=== PATIENT | male | born 1985 ===

== ENCOUNTER 2017-11-07 05:38 | Inpatient (IN) | payer OTHER ==
[~2017-11-07] VITALS: Ht 165.1 cm; Wt 76.2 kg
[2017-11-07] VITALS (14 sets, daily range): BP systolic 105–137; BP diastolic 56–83
[2017-11-07] MEDS ORDERED: SOMA350 MG PO (06:20)
[2017-11-07] MEDS ORDERED: IBUPROFEN600 MG ORAL (06:20)
[2017-11-07] MEDS ORDERED: OMEPRAZOLE20 M2 ORAL (06:20)
[2017-11-07] MEDS ORDERED: XANAX2 MG ORAL (06:20)
[2017-11-07] MEDS ORDERED: Bacitracin 50000 Units Vial ONE (06:49)
[2017-11-07] MEDS ORDERED: Bupivacaine 0.5% Inj 30 ml vial INJ ONE (06:49)
[2017-11-07] MEDS ORDERED: Gelfoam Absorbable 1gm powder pkt TOPIC ONE (06:49)
[2017-11-07] MEDS ORDERED: Vancomycin 1gm inj IVPB ONE (06:49)
[2017-11-07] MEDS ORDERED: Thrombin 5000 units spray kit TOPIC ONE (06:49)
[2017-11-07] MEDS ORDERED: Thrombin 5000 units TOPIC ONE (06:49)
[2017-11-07] MEDS ORDERED: Sterile Water Irrig 1000ml IRRIG ONE (07:00)
[2017-11-07] MEDS ORDERED: Glycopyrrolate 0.2mg/ml 1ml Vial ONE (07:00)
[2017-11-07] MEDS ORDERED: ceFAZolin sod 2 GM in D5W 110 ML IVPB ONE (07:00)
[2017-11-07] MEDS ORDERED: Lidocaine 1% MPF 10mg/ml 5ml ONE (07:00)
[2017-11-07] MEDS ORDERED: Propofol 1,000mg/ 100ml btl IV ONE (07:00)
[2017-11-07] MEDS ORDERED: LR 1000ml ONE (07:00)
[2017-11-07] MEDS ORDERED: Dexamethasone 4mg/ml vial ONE (07:00)
[2017-11-07] MEDS ORDERED: Neostigmine 1mg/ml 10ml Inj ONE (07:00)
[2017-11-07] MEDS ORDERED: NS Irrig 1000ml ONE (07:00)
[2017-11-07] MEDS ORDERED: fentaNYL 100 mcg/2 mL IV ONE (07:00)
[2017-11-07] MEDS ORDERED: Midazolam 2mg/2ml Inj ONE (07:00)
[2017-11-07] MEDS ORDERED: Succinylcholine 20mg/ml 10ml vial ONE (07:00)
[2017-11-07] MEDS ORDERED: Sodium Chloride 10ml vial INJ ONE (07:00)
[2017-11-07] MEDS ORDERED: Nimbex 2mg/ml Inj 10ML IVP ONE (07:00)
[2017-11-07] MEDS ORDERED: Morphine Sulfate 10mg/ml Inj ONE (07:00)
[2017-11-07] MEDS ORDERED: Ketorolac 30mg Inj ONE (07:00)
--- NOTE | 2017-11-07 07:14 | Pre-Procedure Note/Attestation ---
Pre-Procedure Note/Attestation Complete Prior to Procedure Planned Procedure: not applicable Procedure Narrative: Left sided L5S1 microdiscectomy and bilateral hemilaminotomy foraminotomy Indications for Procedure Pre-Operative Diagnosis: low back pain and radiculopathy Attestation I attest that I discussed the nature of the procedure; its benefits; risks and complications; and alternatives (and the risks and benefits of such alternatives ), prior to the procedure, with the patient (or the patient's legal technical support representative). I attest that, if there was a reasonable possibility of needing a blood transfusion, the patient (or the patient's legal technical support representative) was given the [place] [facility] [employer] [facility] standardized written summary, pursuant to the [place] Blood Safety Act ([place] Health and Safety Code # 1645, as amended). I attest that I re-evaluated the patient just prior to the surgery and that there has been no change in the patient's H&P, except as documented below: TAWNY CALDWELL Nov 07, 2017 07:14
--- NOTE | 2017-11-07 07:15 | Brief Operative Note ---
Immediate Post Operative Note Operative Note Chief Complaint: lbp and radiculopathy Pre-op Diagnosis: L5S1 hnp, low back pain and radiculopathy Procedure: PROCEDURE PERFORMED DURING ADMISSION: Hemilaminotomy, foraminotomy, and microdiscectomy of right-sided L4-L5 and L5-S1. Post-op Diagnosis: same as pre-op Findings: consistent w/pre-op dx studies Surgeon: Ness Special Procedure Technologist: Eliel Anesthesiologist: ÓSCAR Anesthesia: general Specimen: none Complications: none Condition: stable Estimated Blood Loss: minimal Drains: none Implant(s) used?: Yes - michell sz 10 TAWNY CALDWELL Nov 07, 2017 07:15
[2017-11-07] MEDS ORDERED: LR 1000ml 1,000 ML IVLG SCH (08:12)
--- NOTE | 2017-11-07 08:12 | Anethesia Preoperative Eval ---
Anesthesia Pre-op PMH/ROS General Date of Evaluation: Nov 07, 2017 Time of Evaluation: 07:04 Anesthesiologist: Rachell ASA Score: ASA 2 Mallampati Score Class I : Soft palate, uvula, fauces, pillars visible Class II: Soft palate, uvula, fauces visible Class III: Soft palate, base of uvula visible Class IV: Only hard plate visible Mallampati Classification: Class II Surgeon: Ness Diagnosis: Lumbar radiculopathy Surgical Procedure: L5-S1 laminotomy with discectomy and Baxano decompression Anesthesia History: none Social History: current smoker Family History: no anesthesia problems Allergies: Coded Allergies: No Known Allergies (Unverified , 11/06/17) Medications: see eMAR Past Medical History Cardiovascular: Denies: HTN, CAD, [place], valve dz, arrhythmia, other Pulmonary: Denies: asthma, COPD, LILIB[place], other Gastrointestinal/Genitourinary: Reports: GERD - mild, Denies: CRI, ESRD, other Neurologic/Psychiatric: Reports: depression/anxiety, other - questionable h/o seizers, Denies: dementia, CVA, TIA Endocrine: Denies: DM, hypothyroidism, steroids, other HEENT: Denies: cataract (L), cataract (R), glaucoma, [place] (L), [place] (R), other Hematology/Immune: Denies: anemia, DVT, bleeding disorder, other Musculoskeletal/Integumentary: Denies: OA, RA, DJD, DDD, edema, other PMH Narrative: as above PSxH Narrative: ORIF of tibial Fx Anesthesia Pre-op Phys. Exam Physician Exam Last Vital Signs Date Time Temp Pulse Resp B/P (MAP) Pulse Ox O2 Delivery O2 Flow Rate FiO2 11/07/17 06:41 97.7 48 20 105/56 97 Room Air Constitutional: NAD Neurologic: CN 2-12 intact Cardiovascular: RRR, no M/R/G Respiratory: CTA Gastrointestinal: S/NT/ND Airway Exam Mallampati Score: Class II MO: full Neck: flexible ROM: full Teeth: intact Dentures: no upper, no lower Anesthesia Pre-op A/P Labs see chart Studies Pre-op Studies: EKG - NSR, CXR - WNL, echo - EF >55% Risk Assessment & Plan Assessment: ASA 2 Plan: GA with ETT prone position neuromonitoring Status Change Before Surgery: No Pre-Antibiotics Drug: Ancef 2 gr. Given Within 1 Hr of Incision: Yes Time Given: 07:36 JOCE LINDSAY M.D. Nov 07, 2017 08:12
[2017-11-07] MEDS ORDERED: Ketorolac 30mg Inj IV PRN (08:15)
[2017-11-07] MEDS ORDERED: Midazolam 2mg/2ml Inj IVP PRN (08:15)
[2017-11-07] MEDS ORDERED: Meperidine 50mg/ml Inj(FOR RIGORS ONLY) IV PRN (08:15)
[2017-11-07] MEDS ORDERED: DiphenhydrAMINE 50mg/ml Inj IVP PRN (08:15)
[2017-11-07] MEDS ORDERED: Metoclopramide 10mg/2ml Inj IVP PRN ×2 (08:15→14:30)
[2017-11-07] MEDS ORDERED: Hydromorphone 0.5mg/0.5ml inj IVP PRN ×2 (08:15→14:30)
--- NOTE | 2017-11-07 09:58 | Immediate Post-Op Evaluation ---
Immediate Post-Op Evalulation Immediate Post-Op Evalulation Procedure: L5-S1 Laminotomy with discectomy and Baxano decompression Date of Evaluation: Nov 07, 2017 Time of Evaluation: 09:50 IV Fluids: 1100 Blood Products: none Estimated Blood Loss: 100 Urinary Output: none Blood Pressure Systolic: 111 Blood Pressure Diastolic: 65 Pulse Rate: 75 Respiratory Rate: 20 O2 Sat by Pulse Oximetry: 99 Temperature (Fahrenheit): 97.6 Pain Score (1-10): 2 Nausea: No Vomiting: No Complications Surgical course uneventful turned to supine position on hospital bed , patients mouth and upper airways full of semidigested food , according to preop patients information his last his las foot intake was around 2300 hour considering amount and condition of regurgitant suction out of his mouth it happened much later, chest X-ray ordered puls oxymetry was normal throughout the case will monitor postoperatively. Patient Status: reacts, patent, extubated, none Hydration Status: adequate JOCE LINDSAY M.D. Nov 07, 2017 09:58
--- NOTE | 2017-11-07 10:14 | Diagnostic Imaging Report ---
Indication: Cough, secretions on extubation Technique: One view of the chest Comparison: none Findings: Patchy infiltrate and atelectasis is seen in the right suprahilar region. A band of atelectasis is seen in the left perihilar region. The pleural spaces are clear. The heart is upper limits normal in size. The upper trachea appears deviated to the left, but suspect that this is due to the head being turned. Impression: Patchy right suprahilar infiltrate and associated atelectasis. Pneumonia a possibility. Correlate with clinical findings Left perihilar atelectasis Findings discussed with patient's attending anesthesiologist at the time of interpretation
--- NOTE | 2017-11-07 11:50 | Diagnostic Imaging Report ---
Indication: Back pain, intraoperative Technique: Intraoperative images Comparison: none Findings: Intraoperative images demonstrate localizer tool posterior to the upper sacrum. Subsequent images demonstrate deployment of the Baxano device at L5-S1. Impression: Intraoperative imaging, as described
[2017-11-07] MEDS ORDERED: HYDROmorphone 1mg/ml Carpuject SUBQ PRN (14:30)
[2017-11-07] MEDS ORDERED: Norco 5mg/325mg tab ORAL PRN (14:30)
[2017-11-07] MEDS ORDERED: HYDROmorphone 1mg/ml Carpuject IVP PRN (14:30)
[2017-11-07] MEDS ORDERED: Milk of Magnesia 30ml Ud ORAL PRN (14:30)
[2017-11-07] MEDS ORDERED: Hydromorphone 0.5mg/0.5ml inj SUBQ PRN (14:30)
[2017-11-07] MEDS ORDERED: Naloxone 0.4mg/ml Inj IVP PRN (14:30)
[2017-11-07] MEDS ORDERED: Albuterol/Ipratropium 3ml neb HHN PRN (14:45)
[2017-11-07] MEDS ORDERED: Chloraseptic Spray 20mL Bottle ORAL PRN (15:00)
[2017-11-07 15:11] LABS: ABG ALLEN TEST POSITIVE; ABG BASE EXCESS -1.1
[2017-11-07] MEDS ORDERED: Zosyn 3.375gm q8h **Extended infusion IVPB ONE ×2 (16:00)
[2017-11-07 16:05] LABS: ANION GAP 6 mmol/L (5-15); CALCIUM 8.4 MG/DL (8.5-10.1); CARBON DIOXIDE 28 MMOL/L (21-32); CHLORIDE 107 MMOL/L (98-107); GLOMERULAR FILTRATION RATE > 60 mL/min (>60); POTASSIUM 4.4 MMOL/L (3.5-5.1); SODIUM 141 MMOL/L (136-145)
[2017-11-07] MEDS: NS w/KCl 20mEq 1,000 ML IV SCH (17:01)
[2017-11-07] MEDS: ceFAZolin sod 1 GM in D5W 55 ML IV SCH (17:01)
[2017-11-07] MEDS: Docusate 100mg cap ORAL SCH (18:11)
[2017-11-07] MEDS: Dexamethasone 4mg/ml vial IVP SCH (18:11)
--- NOTE | 2017-11-07 21:15 | Operative Note - Dictated ---
DATE OF OPERATION: 11/07/2017 SURGEON: Cristofer Arzola MD, Orthopaedic Spine Surgeon. CO-SURGEON: Tobias Julian M.D. ANESTHESIA: General endotracheal anesthesia. PREOPERATIVE DIAGNOSES: 1. Intractable back pain. 2. Intractable leg pain. 3. Worsening radiculopathy. 4. Weakness. 5. Herniated nucleus pulposus, L5-S1 herniation. 6. Neural foraminal stenosis, L5-S1. POSTOPERATIVE DIAGNOSES: 1. Intractable back pain. 2. Intractable leg pain. 3. Worsening radiculopathy. 4. Weakness. 5. Herniated nucleus pulposus, L5-S1 herniation. 6. Neural foraminal stenosis, L5-S1. PROCEDURES PERFORMED: 1. Left-sided L5-S1 microdiscectomy. 2. L5-S1 hemilaminotomy, foraminotomy, medial facetectomy decompression bilateral. 3. L5-S1 neural foraminotomy through a transpedicular intraforaminal approach. 4. Use of intraoperative microscope. 5. Supervision and interpretation of intraoperative fluoroscopy. 6. Supervision and interpretation of somatosensory-evoked potential and free running EMG monitoring. ESTIMATED BLOOD LOSS: Less than 100 mL. COMPLICATIONS: None. INDICATIONS FOR THE PROCEDURE: Rafael presents for intractable back pain and radiculopathy. The patient tried and failed a prolonged course of conservative management, including but not limited to chiropractic therapy, physical therapy, nonsteroidal anti-inflammatory drugs, medication, ice packs as well as epidural injection. Despite these therapies, the patient still developed recalcitrant pain and elected for definitive management in the form of left-sided L5-S1 microdiscectomy, L5-S1 hemilaminotomy, foraminotomy, and medial facetectomy, and L5-S1 neural foraminotomy through a transpedicular intraforaminal approach. We had a long discussion with him regarding definitive surgical treatment options. The patient's MRI demonstrated herniated nucleus pulposus, L5-S1 herniation, neural foraminal stenosis, L5-S1, and as a result, I felt he would benefit from the discectomy as well as neural foraminotomy at this level. We had a long discussion with the patient regarding the risks, alternatives, and benefits of surgery. Our description of the risks included a discussion in person as well as a signed consent which detailed all pertinent risks and the procedure itself. Briefly, our discussion included but was not limited to infection, bleeding, pseudarthrosis, spinal cord injury, neurovascular injury, dural tear, CSF leak, neuropathy, paralysis, permanent weakness/drop foot, paresthesias blindness, palsy, and weakness. The patient understood there may be a need for revision surgery or additional procedures. Approach-related complications including dysphonia, dysphagia, blindness, permanent vocal cord and neural injury, hematoma, swallowing, and breathing difficulty. Medical complications including liver, kidney, shock, and cardiopulmonary failure. Anesthesia complications including , swelling. Damage to the musculature, larynx (voice injury or loss),esophagus (throat), trachea, blood vessels and muscles (muscular sprain) and lungs (pneumothorax) during this surgical procedure. Injury to deeper structures may be temporary or permanent. The patient understood these and elected to proceed. A written and verbal consent was given. We discussed the pros and cons of all the alternatives. We discussed the uncertainties associated with the decision. Afterwards I assessed the patients understanding and explored their preferences. All questions were answered and no guarantees were given. Medical clearance was obtained prior to surgery. OPERATIVE FINDINGS: A broad-based disc herniation at L5-S1 which encroached on the thecal sac and neural foraminal elements therein. This disc was acute in nature and not calcified. It was mobile and free floating and resected easily. There was also neural foraminal stenosis at L5-S1. DESCRIPTION OF PROCEDURE: Under the benefit of general endotracheal anesthesia and with the assistance of the entire operative team, the patient was moved from the [place] furnace onto the operative table in the prone position on a Billy frame. The head was secured and positioned appropriately. Bilateral arms were secured with Gelpads and foam and all bony prominences were padded. The bilateral lower extremity SCD and SANDRA hose were placed for DVT prophylaxis. A surgical timeout was called which corroborated our planned procedure. Preoperative antibiotics were administered within 30 minutes of the incision for prophylaxis. Decadron was given for preoperative steroids. Using lateral radiography, the operative levels were delineated. An incision was marked based on our interpretation of lateral radiography and afterwards the body was prepped and draped in the usual sterile manner. The family was notified that we were ready to commence surgery and were called in the waiting room hourly for updates. An incision was based on our lateral fluoroscopic image to center the incision at the L5-S1 interspace. The wound was prepped and draped in the usual sterile fashion. Using a scalpel, a midline incision was taken down through the skin and subcutaneous tissues until the overlying hemilamina of L5-S1 were visualized. Next, using meticulous hemostasis, hemilamotomies were dissected and retractors were placed. Using a [place] dental, we confirmed placement at the L5-S1 interspace. We next turned our attention to our decompression. A standard hemilaminotomy, foraminotomy, medial facetectomy and bilateral was performed at each level in standard fashion using a Midas-Ganesh type AM8 drill bit, straight and angled curettage, and [place] 4 rongeurs until the lateral thecal sac margin and traversing nerve root was visualized. All remainders of the ligamentum flavum and lateral bony margins were resected in total with angled curettage and Kerr[place] 4 rongeurs until the lateral thecal sac margin and traversing nerve root was visualized and decompressed. We next turned our attention toward our L5-S1 microdiscectomy on the left side. A Sandy 4 was used to gently mobilize the thecal sac medially and this was held retracted with a bayonetted nerve root retractor. It was at this point that we noted a large broad-based disc protrusion with encroachment dorsally on the thecal sac neural foraminal contents. A bayonet and nerve root retractor was then placed carefully to retract the thecal sac and a discectomy was performed using a combination of a long-handled 15 blade scalpel, downgoing and straight pituitaries and downgoing curettage. Afterward the disc space was irrigated twice with 20 mL of antibiotic-impregnated saline. All loose and free-floating disc fragments were carefully resected with a narrow pituitary. Having been satisfied with our decompression after our discectomy of all neural elements, we next turned our attention to our neural foraminoplasty/foraminotomy. This was performed only on the left side through a transpedicular intraforaminal approach using an access probe followed by a neuro check device, which confirmed ventral placement of our nerve root. Once we confirmed we were safe, we next turned our attention towards placement of our size 10 file under direct microscopic visualization and under lateral fluoroscopy. Using pre and post reciprocation imaging, we were able to visualize our direct decompression given the reciprocation allowed for re-creation of the neural foraminal arch at L5-S1. Afterwards hemostasis was obtained with 60 mL of antibiotic-impregnated saline followed by FloSeal and Gelfoam. After sponge and needle count were found to be correct, next we turned our attention to closure. Closure consisted of 1-0 Vicryl in standard interrupted fashion. Zosyn was placed deep to the fascia and superficial to the fascia for antibiotic prophylaxis. Skin closure was performed with 2-0 Vicryl in interrupted fashion followed by a running Monocryl for the skin. Final dressings consisted of Dermabond for the superficial skin, Telfa, and Tegaderm. The patient tolerated the procedure well. The patient was extubated after the conclusion of surgery without incident. We discussed the findings of the surgery with the family upon completion of the case. At this point, the patient will be transferred to the spine floor for further observation. Cristofer Arzola M.D. DR: Jorge A JOB#: [id number] CC: MARK
[2017-11-07] MEDS: Norco 7.5mg/325mg tab ORAL PRN (21:41)
[2017-11-08] MEDS: Piperacillin/Tazobactam 3.375 GM in D5W 55 ML IVPB SCH ×3 (00:06→16:34)
[2017-11-08] MEDS: ceFAZolin sod 1 GM in D5W 55 ML IV SCH ×2 (00:08→06:34)
[2017-11-08] MEDS: Dexamethasone 4mg/ml vial IVP SCH ×3 (00:08→12:00)
[2017-11-08 00:15] VITALS: BP 138/73
[2017-11-08] MEDS: NS w/KCl 20mEq 1,000 ML IV SCH ×3 (03:02→21:30)
[2017-11-08 03:14] VITALS: BP 127/58
[2017-11-08 03:58] VITALS: BP 120/58
[2017-11-08] MEDS: Docusate 100mg cap ORAL SCH ×2 (08:12→17:14)
[2017-11-08] MEDS: Norco 7.5mg/325mg tab ORAL PRN ×4 (08:13→21:29)
--- NOTE | 2017-11-08 12:39 | 48 Hour Post Anesthesia Eval ---
Post Anesthesia Evaluation Procedure: L5-S1 Laminotomy with discectomy and Baxano decompression Date of Evaluation: Nov 08, 2017 Time of Evaluation: 12:38 Blood Pressure Systolic: 108 0: 56 Pulse Rate: 72 Respiratory Rate: 20 Temperature (Fahrenheit): 97.6 O2 Sat by Pulse Oximetry: 97 Airway: patent Nausea: No Vomiting: No Pain Intensity: 3 Hydration Status: adequate Cardiopulmonary Status: stable Mental Status/LOC: patient returned to baseline Follow-up Care/Observations: n/a Post-Anesthesia Complications: none Follow-up care needed: N/A JOCE LINDSAY M.D. Nov 08, 2017 12:39
[2017-11-08 12:47] LABS: MEAN CORPUSCULAR HEMOGLOBIN 32.1 PG (27.0-31.0); MEAN CORPUSCULAR VOLUME 94 FL (80-99); MEAN PLATELET VOLUME 7.7 FL (6.5-10.1); PLATELET COUNT 295 K/UL (150-450); RED BLOOD COUNT 3.86 M/UL (4.70-6.10); RED CELL DISTRIBUTION WIDTH 10.9 % (11.6-14.8); WHITE BLOOD COUNT 21.5 K/UL (4.8-10.8)
[2017-11-08 13:10] LABS: ANION GAP 12 mmol/L (5-15); CARBON DIOXIDE 27 MMOL/L (21-32); CHLORIDE 105 MMOL/L (98-107); CREATININE 1.2 MG/DL (0.55-1.30); GLOMERULAR FILTRATION RATE > 60 mL/min (>60); SODIUM 143 MMOL/L (136-145)
[2017-11-08 13:38] LABS: BAND NEUTROPHILS % (MANUAL) 0 % (0-8); BASOPHILS % (MANUAL) 0 % (0-2); EOSINOPHILS % (MANUAL) 0 % (0-3); LYMPHOCYTES % (MANUAL) 11 % (20-45); NEUTROPHILS % (MANUAL) 86 % (45-75); PLATELET ESTIMATE ADEQUATE; PLATELET MORPHOLOGY NORMAL; TOTAL CELLS COUNTED 100
--- NOTE | 2017-11-08 18:14 | Diagnostic Imaging Report ---
Indication: Reason For Exam: POST-OP Technique: One view of the chest Comparison: 11/07/2017 Findings: Heart size and mediastinal contours are stable. There is mild pulmonary vascular congestion/fluid overload. There is interval improved aeration of the bilateral lungs. There is no pleural effusion or pneumothorax. Osseous structures are stable. Impression: Interval improved aeration of the lungs compared to one day prior and likely related to improved atelectasis. Minimal hazy right suprahilar opacity persists. No pleural effusion or pneumothorax.
[2017-11-08 20:00] VITALS: BP 135/76
[2017-11-09] MEDS: Piperacillin/Tazobactam 3.375 GM in D5W 55 ML IVPB SCH ×4 (00:30→23:53)
[2017-11-09 04:00] VITALS: BP 105/41
[2017-11-09 08:00] VITALS: BP 125/75
[2017-11-09] MEDS: NS w/KCl 20mEq 1,000 ML IV SCH ×2 (08:18→17:36)
[2017-11-09] MEDS: Docusate 100mg cap ORAL SCH ×2 (08:19→17:57)
[2017-11-09] MEDS: Norco 7.5mg/325mg tab ORAL PRN ×3 (08:21→20:16)
[2017-11-09 12:00] VITALS: BP 130/70
[2017-11-09 16:00] VITALS: BP 139/79
[2017-11-10] VITALS: BP 104/52
[2017-11-10 04:00] VITALS: BP 112/54
[2017-11-10] MEDS: NS w/KCl 20mEq 1,000 ML IV SCH (04:00)
[2017-11-10] MEDS: Norco 7.5mg/325mg tab ORAL PRN (05:15)
[2017-11-10 08:00] VITALS: BP 113/61
[2017-11-10] MEDS: Piperacillin/Tazobactam 3.375 GM in D5W 55 ML IVPB SCH (08:11)
[2017-11-10] MEDS: Docusate 100mg cap ORAL SCH ×2 (08:12→09:00)
[2017-11-10] MEDS ORDERED: Tubing IV Secondary IV ONE (11:29)
[2017-11-10] MEDS ORDERED: NS 275ml ONE (11:29)
--- NOTE | 2017-11-14 14:19 | Discharge Summary ---
Discharge Summary Hospital Course Date of Admission Nov 07, 2017 at 05:38 Date of Discharge Nov 10, 2017 at 11:30 Admitting Diagnosis low back pain with radiculopathy and herniated nucleus pulposus Reason for Hospitalization: elective surgery HPI Rafael Ahumada is a 32 year old male who was admitted on Nov 07, 2017 at 05:38 for low back pain with radiculopathy and herniated nucleus pulposa for elective surgery Procedures s/p 11/07/[address] Arzola 1. Left-sided L5-S1 microdiscectomy. 2. L5-S1 hemilaminotomy, foraminotomy, medial facetectomy bilateral. 3. L5-S1 neural foraminotomy through a transpedicular intraforaminal approach. 4. Use of intraoperative microscope. 5. Supervision and interpretation of intraoperative fluoroscopy. 6. Supervision and interpretation of somatosensory-evoked potential and free running EMG monitoring. Hospital Course s/p surgery course of recovery unremarkable neovascular intact dressing C/D/I ambulated with PT initially IVF, s/p prophylactic abx, started on diet and advanced as tolerated, a/emetic prn IVF dc when tolerated diet pain management addressed, pain controlled Bowel regimen voided freely SCD for DVT prophylaxis stable for dc home outpt fup with surgeon FINAL DIAGNOSIS 1. Intractable back pain. 2. Intractable leg pain. 3. Worsening radiculopathy. 4. Weakness. 5. Herniated nucleus pulposus, L5-S1 herniation. 6. Neural foraminal stenosis, L5-S1. 7. s/p Hemilaminotomy, foraminotomy, and microdiscectomy of right-sided L4-L5 and L5-S1. Discharge Condition Upon Discharge: stable Discharge Disposition Patient was discharged to Home () Discharge Diagnoses: Discharge Instructions Discharge Instructions Special Instructions I have been assigned to complete a D/C Summary on this account. I was not involved in the patient management Toshia Loredo NP ([place]) Nov 14, 2017 14:19
== END 2017-11-10 11:30 | disposition home or self-care (01) | DRG 520 ==
LOC: SDSOVERFLO 05:38 → 2E 14:06
PROC: 0ST40ZZ Resection of Lumbosacral Disc, Open Approach (ICD-10-PCS; principal; 2017-11-07 07:00)
PROC: 01NB0ZZ Release Lumbar Nerve, Open Approach (ICD-10-PCS; principal; 2017-11-07 07:00)
DX: M51.17 Intervertebral disc disorders with radiculopathy, lumbosacral region (principal); F41.8 Other specified anxiety disorders; M48.07 Spinal stenosis, lumbosacral region; K21.9 Gastro-esophageal reflux disease without esophagitis
CPT/HCPCS: 36415; 36600; 71010; 72020; 76001; 80048; 82803; 85007; 85025; 86850; 86900; 86901; 87081; 94003; 94150; 94664; J2250; J2405; J2710; J7620